=== PATIENT | female | born 1980 | race American Indian/Alaskan Native ===

== ENCOUNTER 2016-05-21 16:45 | Day surgery (SDC) | payer MEDICAID ==
--- NOTE | 2016-05-21 11:55 | Short Stay Summary ---
Short Stay Documentation Date of service: 05/21/16 Narrative H&P: 35-year-old presents for permanent sterilization. The patient has a history of an Essure procedure however follow-up imaging demonstrated that she had a patent fallopian tube. - History Principal diagnosis: unwanted fertility H&P: obtained from office Past Medical History: GERD, hypertension Past Surgical History: , Other (Essure) Social history: single - Allergies and Medications Current Medications: Allergies No Known Allergies Allergy (Verified 05/13/16 15:46) Home Medications Medication Instructions Recorded Confirmed Last Taken Type Norgestimate-Ethinyl Estradiol 1 each PO DAILY 05/13/16 05/13/16 Unknown History [Tri-Sprintec Tablet] Phentermine HCl 37.5 mg PO QAM 05/13/16 05/13/16 05/13/16 08:00 History Ciprofloxacin HCl [Ciprofloxacin 500 mg PO BID 05/18/16 05/18/16 Unknown History TAB] metroNIDAZOLE [Flagyl] 500 mg PO Q12HR 05/18/16 05/18/16 Unknown History - Physical exam General appearance: no acute distress Integumentary: no rash HEENT: Atraumatic Lungs: Clear to auscultation Breasts: deferred Heart: Regular rate Gastrointestinal: normal Female Genitourinary: deferred Rectal Exam: deferred Extremities: no ischemia Neurological: Normal gait - Brief post op/procedure progress note Date of procedure: 05/21/16 Pre-op diagnosis: undesired fertility; prior failed Essure Post-op diagnosis: same Procedure: Laparoscopy Lysis of adhesions Bilateral salpingectomy Anesthesia: SHILPI Surgeon: XIAO VO Estimated blood loss: minimal Pathology: list (bilateral tubes) Specimen disposition: to lab Condition: stable - Hospital course Hospital course: The patient was admitted that he is surgery underwent a laparoscopic bilateral salpingectomy. Please see operative note for details of surgery. Postoperative course is uneventful. The patient is discharged home when she met discharge criteria. - Disposition Condition at discharge: Good Disposition: DISCHARGED TO HOME OR SELFCARE Short Stay Discharge Plan Activity: other (pelvic rest for 1 week) Diet: regular Additional Instructions: Follow-up is not required Follow-up as needed Prescriptions: Ibuprofen [Motrin] 800 mg PO Q8HR PRN #60 tablet PRN Reason: Pain oxyCODONE /ACETAMINOPHEN [Percocet 5/325] 1 tab PO Q6HR PRN #30 tablet PRN Reason: Pain
--- NOTE | 2016-05-21 12:22 | Anesthesia Consultation ---
Anesthesia Consult and Med Hx Date of service: 05/21/16 - Airway Anesthetic Teeth Evaluation: Good ROM Head & Neck: Adequate Mental/Hyoid Distance: Adequate Mallampati Class: Class II Intubation Access Assessment: Good - Pulmonary Exam CTA: Yes - Cardiac Exam Cardiac Exam: No Murmur - Pre-Operative Health Status ASA Pre-Surgery Classification: ASA2 Proposed Anesthetic Plan: General - Pulmonary Hx Smoking: Yes - Central Nervous System Hx Psychiatric Problems: No - Gastrointestinal Hx Gastroesophageal Reflux Disease: No - Endocrine Hx Non-Insulin Dependent Diabetes: Yes (Gestational only) - Other Systems Hx Cancer: No
--- NOTE | 2016-05-21 12:23 | Anesthesia Day of Surgery ---
Anesthesia Day of Surgery - Day of Surgery Patient Examined: Yes Patient H&P Reviewed: Yes Patient is NPO: Yes
--- NOTE | 2016-05-21 14:42 | Operative Report ---
Operative Report Operative Report: Date of surgery: 05/21/2016 Preoperative diagnosis: Unwanted fertility; prior failed Essure Postoperative diagnosis: Same as above Procedure: Laparoscopy; lysis of adhesions; bilateral salpingectomy Surgeon: Joseline Irving M.D. Anesthesia: General endotracheal anesthesia Estimated blood loss: Minimal Pathology: Bilateral fallopian tubes Findings: Omental adhesion adherent to the anterior abdominal wall; normal uterus tubes and ovaries Indication: 35-year-old who presents with a history of a prior tubal ligation that was unsuccessful. The patient elected to undergo permanent sterilization. Procedure: The patient was taken to the operating room and given general endotracheal anesthesia without complication. The patient is prepped and draped in a normal sterile fashion. A bivalve speculum was placed in the patient's vagina and a single-tooth tenaculum was placed on the anterior lip of the cervix .A uterine acorn manipulato rwas placed, and the bivalve speculum was then removed. Attention was then turned to the patient's abdomen where a 5 mm infraumbilical skin incision was then made. A Veress needle was placed and peritoneal entry was verified water-filled syringe. Insufflation of the peritoneal cavity was performed with CO2 gas. A 5 mm trocar was placed and the laparoscope was then inserted. The patient was then placed in Trendelenburg. A 10 mm suprapubic skin incision was then made. Under direct visualization a 10 mm trocar was then placed. General survey of the patient's abdomen revealed an omental adhesion to the anterior abdominal wall. The uterus tubes and ovaries were normal in appearance. An additional left lateral 5 mm trocar was placed under direct visualization. The left fallopian tube was then followed out to the fimbriated end and grasped with a grasper. LigaSure device was then inserted through the 5 mm trocar. The mesosalpinx of the left fallopian tube was coagulated and transected. The left fallopian tube was amputated from the uterus and ovary. This was performed on contralateral side as well. The fallopian tubes were removed through the 10 mm trocar. The 10 mm trocar was removed and a Ronen Oakley device was then inserted for closure of the fascia with 2-0 Vicryl. The pneumoperitoneum was then released. The 5 mm trocars and laparoscope were then removed. The skin incisions were then closed with 4-0 Monocryl. The incisions were injected with quarter percent Marcaine. Dressings were applied to the incision. The vaginal instruments were then removed atraumatically. Then successfully extubated and taken to the recovery room. All sponge laps and needle counts were correct 2. Specimen sent to pathology were bilateral fallopian tubes
[~2016-05-21 16:45] MED LIST: BLOXIVERZ ONE; DILAUDID IV PRN; DILAUDID ONE; DIPRIVAN 10 MG/ML IV ONE; LACTATED RINGERS 1,000 ML IV SCH; LACTATED RINGERS 1,000 ML ONE; MARCAINE 0.5% INFILTRATI ONE; NACL 0.9% IR ONE; NARCAN 0.4 MG/1 ML ONE; NORCO 5/325 PO PRN; PEPCID PO NR; QUELICIN ONE; ROBINUL ONE; SUBLIMAZE ONE; TORADOL ONE; VERSED IV NR; XYLOCAINE MPF 2% ONE; ZEMURON IV ONE; ZOFRAN IV PRN; ZOFRAN ONE
[2016-05-21 18:18] VITALS: BP 158/77
== END 2016-05-21 17:55 | disposition home or self-care (01) ==
LOC: OR 16:45
PROVIDERS: ATTEND Obstetrics & Gynecology
DX: Z30.2 Encounter for sterilization (principal); K66.0 Peritoneal adhesions (postprocedural) (postinfection); K21.9 Gastro-esophageal reflux disease without esophagitis; I10 Essential (primary) hypertension; F17.210 Nicotine dependence, cigarettes, uncomplicated; Z98.890 Other specified postprocedural states; Z87.440 Personal history of urinary (tract) infections; Z90.710 Acquired absence of both cervix and uterus; Z79.899 Other long term (current) drug therapy
CPT/HCPCS: 58661; 81025; 82962; 88302; J0330; J1170; J1885; J2250; J2310; J2405; J2704; J2710; J3010; J7120